=== PATIENT | female | born 1990 | race Caucasian/White ===

== ENCOUNTER → 2016-09-12 | Outpatient (CLI) | payer BC ==
[~2016-09-12] VITALS: Ht 160 cm; Wt 103.4 kg
[~2016-09-12] MED LIST: NORMAL SALINE IV ONE; REGADENOSON 0.4 MG/5 ML DISP.SYRIN. IV ONE; SINCALIDE IV ONE
--- NOTE | 2016-09-12 10:31 | RAD ---
Radionuclide hepatobiliary scan with gallbladder ejection fraction, 09/12/2016: History: Abdominal pain Following IV injection of 5.5 mCi of technetium 99m Choletec there was prompt uptake of the radionuclide from the blood stream by the liver. Activity is present in the bile ducts, gallbladder and small bowel at 15 minutes. Additional imaging of the gallbladder was performed following IV injection of 2.1 mcg of cholecystokinin. There is vigorous gallbladder emptying with gallbladder ejection fraction calculated at 94%. IMPRESSION: 1. Normal radionuclide hepatobiliary scan. 2. The gallbladder ejection fraction is 94%.
== END | disposition home or self-care (01) ==
LOC: NM 07:33
PROVIDERS: ATTEND Family Medicine
DX: R10.11 Right upper quadrant pain (principal)
CPT/HCPCS: 78226; 96374; 96375; J2805